=== PATIENT | male | born 1970 | race Caucasian/White ===

== ENCOUNTER 2023-12-02 17:43 | Emergency (ER) | payer BC, SELFPAY ==
[2023-12-02 17:44] VITALS: BP 149/85; PULSE 105; RESP 18; TEMP 36.4; O2SAT 94
--- NOTE | 2023-12-02 18:40 | ED_ITS ---
HPI - Wound/Laceration General Date Seen: 12/02/23 Chief Complaint: Laceration/Wound Stated Complaint: laceration - left hand Time Seen by Provider: 12/02/23 18:24 Source: patient Mode of arrival: ambulatory Limitations: no limitations History of Present Illness HPI narrative: Patient is a 53-year-old male presenting to emergency department for a laceration to his left hand. States he was doing some work with a band saw when he accidentally cut the back of his hand with the saw. He denies any weakness in the hand has full range of motion to the hand at this time. Denies any numbness. No other injuries noted. Last tetanus was in 2012. Injury was done while doing a home project. Related Data Previous Rx's ?Medication ?Instructions ?Recorded cephalexin 500 mg capsule 500 mg PO QID #20 caps 12/02/23 Allergies Allergy/AdvReac Type Severity Reaction Status Date / Time No Known Drug Allergies Allergy Verified 12/02/23 17:47 Review of Systems Narrative: Pertinent systems reviewed and were negative unless stated in HPI Exam Narrative: Exam Narrative: Const: Well-nourished, Well-developed, in mild distress Eyes: PERRL, no conjunctival injection, and symmetrical lids HENT: Atraumatic external nose and ears. Moist mucous membranes. MSK:Extremities w/o deformity, Normal Active ROM Skin: Warm, Dry. 1 cm laceration to back of left hand. Bleeding controlled. Did not see any signs of tendon or muscle damage. Neuro: Normal Muscle tone, No focal neurological deficits. Psych: Awake, Alert, & Oriented x3. Appropriate mood and affect. Const: Vital Signs, click to edit/add: Vital Signs - 24 hr 12/02/23 17:44 Temperature 97.5 F L Pulse Rate [Right Pulse Oximeter] 105 H Respiratory Rate 18 Blood Pressure [Ri ght Upper Arm] 149/85 H Pulse Oximetry 94 Oxygen Delivery Me thod Room Air Course Vital Signs Vital signs: Initial Vital Signs Temperature 97.5 F L 12/02/23 17:44 Temperature Source Temporal Artery Scan 12/02/23 17:44 Pulse Rate 105 H 12/02/23 17:44 Pulse Rhythm Regular 12/02/23 17:44 Respiratory Rate 18 12/02/23 17:44 Blood Pressure 149/85 H 12/02/23 17:44 Blood Pressure Mean 106 H 12/02/23 17:44 Blood Pressure Position Sitting 12/02/23 17:44 Pulse Oximetry 94 12/02/23 17:44 Oxygen Delivery Method Room Air 12/02/23 17:44 Vital Signs Temperature 97.5 F L 12/02/23 17:44 Pulse Rate 105 H 12/02/23 17:44 Respiratory Rate 18 12/02/23 17:44 Blood Pressure 149/85 H 12/02/23 17:44 Pulse Oximetry 94 12/02/23 17:44 Oxygen Delivery Method Room Air 12/02/23 17:44 Temperature 97.5 F L 12/02/23 17:44 Pulse Rate 105 H 12/02/23 17:44 Respiratory Rate 18 12/02/23 17:44 Blood Pressure 149/85 H 12/02/23 17:44 Pulse Oximetry 94 12/02/23 17:44 Oxygen Delivery Method Room Air 12/02/23 17:44 MDM - Wound/Laceration MDM Narrative Medical decision making narrative: Patient is a 53-year-old male presenting for laceration to his left hand. I do not see any deep structure damage. See procedure note. Tetanus was updated. The typically lacerations do not require antibiotics this wound was done by a van some which on stone is in very clean. Also he will continue to work he states and does wear gloves and I am concerned this could lead to infection. The so treated with antibiotics prophylactically Discharge Plan Discharge Clinical Impression: Laceration Patient Disposition: Home, Self-Care Condition: Stable Instructions: Laceration (ED) Additional Instructions: Follow-up with your primary care provider or urgent care in the next 7 days to have the 3 sutures removed. For next 6 months, once sutures are removed, whenever you go outside put a dab of sunscreen over the laceration site to improve scar appearance. Topical antibiotics are not necessary at this time. P atient can shower but do not submerge the laceration until sutures are removed. Keep the area covered and specially whenever you are working and dry keep it is dry as possible as this does increase the risk of infection. Use the antibiotics as directed. Prescriptions: New cephalexin 500 mg capsule 500 mg PO QID Qty: 20 0RF Stand Alone Forms: [facility] Info Instructions Procedures Laceration Left hand: Name of person performing procedure: Max Grant Site: face (Dorsal aspect) Side (If applicable): left Size (cm): 1 Description: linear and clean Depth: simple, single layer Local Anesthetic: lidocaine 1% Amount of anesthesia used (mL): 2 Pre-repair: wound explored, irrigated extensively and deep structures intact Skin layer closed with: nylon Size (cm): 5-0 Number of sutures: 3 Technique: simple, interrupted
[2023-12-02] MEDS: TETANUS/DIPHTH/PERTUSSIS 0.5 ML SYRINGE IM (18:55)
== END 2023-12-02 19:05 | disposition home or self-care (01) ==
LOC: ED 18:50
PROVIDERS: Emergency Provider Student in an Organized Health Care Education/Training Program
DX: S61.412A Laceration without foreign body of left hand, initial encounter (principal); W31.2XXA Contact with powered woodworking and forming machines, initial encounter
CPT/HCPCS: 12001; 90471; 90715; 99282; 99283